=== PATIENT | male | born 1995 | race Caucasian/White ===

== ENCOUNTER 2017-07-23 22:40 | Emergency (ER) | payer BC ==
[~2017-07-23] VITALS: Ht 172.7 cm; Wt 113.4 kg
[~2017-07-23 22:40] MED LIST: DIPATR PO; Zofran Odt8 MG SL
== END 2017-07-24 00:44 | disposition home or self-care (01) ==
LOC: ER 22:40
DX: S61.210A Laceration without foreign body of right index finger without damage to nail, initial encounter (principal); W26.0XXA Contact with knife, initial encounter
CPT/HCPCS: 12001; 90471; 90714; 99283